=== PATIENT | female | born 1945 | race Caucasian/White ===

== ENCOUNTER 2016-10-29 12:08 | Day surgery (SDC) | payer MEDICARE, OTHER ==
[2016-10-26 11:20] LABS: HEMOGLOBIN 13.6 g/dL (12.0-16.0)
[2016-10-26 11:21] LABS: HEMATOCRIT 41.5 % (36.0-48.0)
[2016-10-26 11:35] LABS: CALCIUM, SERUM 9.2 MG/DL (8.5-10.4); CHLORIDE, SERUM 110 MMOL/L (96-112); CO2 (CARBON DIOXIDE) 28 MMOL/L (24-34); CREATININE 1.16 MG/DL (0.55-1.02); GFR AFRICAN AMERICAN 55 ML/MIN (>=60); GFR NON AFRICAN AMERICAN 48 ML/MIN (>=60); POTASSIUM, SERUM 4.8 MMOL/L (3.5-5.3)
[2016-10-26 11:36] LABS: BUN (BLOOD UREA NITROGEN) 15 MG/DL (6-23); GLUCOSE, SERUM 79 MG/DL (60-99); SODIUM, SERUM 144 MMOL/L (135-148)
[2016-10-26 12:26] LABS: ASCORBIC ACID (UR NOT ORDER) NEG (NEG); BILIRUBIN, URINE NEGATIVE (NEG); KETONE, URINE NEGATIVE (NEG); LEUKOCYTE ESTERASE(NOT OR LARGE (NEG); WBC (NOT ORDERED) (RFLEX) 3 (0-5)
--- NOTE | ~2016-10-29 | OP ---
Record Of Operation [facility] [address] [place]. [address] NAME: VILMA GODWIN : 47 STATUS : [facility]#: [id number] AGE: 71 ADM/REG DATE : 10/29/16 MR#: [id number] REPORT SERV DATE: 10/29/16 DICTATED BY: JASON NICOLE JR. DATE: 10/29/16 REPORT STATUS : Draft TRANSCRIBED BY: MODL DATE: 10/29/16 DATE OF PROCEDURE: 10/29/2016 SURGEON: Jason Nicole M.D. PREOPERATIVE DIAGNOSIS: Bladder tumor. POSTOPERATIVE DIAGNOSIS: Bladder tumor. PROCEDURE PERFORMED: Cystoscopy, bilateral retrograde pyelogram, and bladder biopsy. COMPLICATIONS: None. CONSULTATIONS: None. ANESTHESIA: General with laryngeal mask airway. SPECIMENS: Bladder biopsy x3. ESTIMATED BLOOD LOSS: None. INDICATION: Mrs. 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 She had a distal ureterectomy with partial cystectomy and ureteral reimplantation. 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 She comes today for biopsy of these areas. PROCEDURE IN DETAIL: After the patient was identified and proper informed consent was obtained, she was taken to the operating room. General anesthesia was performed without complication using a laryngeal mask airway. She was then prepped and draped in normal sterile fashion in the lithotomy position. Cystoscopic examination of the urethra and bladder were performed. The right ureteral orifice was in the normal position, normal size. The left ureteral orifice was at its reimplant location, posteriorly and laterally. There was a small erythematous area on the superior border of that ureteral orifice. 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 The rest of the bladder mucosa was found to be normal. Retrograde pyelograms were performed on the left side. She had a normal caliber and course to the ureter with normal collecting system without filling defect. 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 This was compared back to her previous IVP done several years ago, and she had a very similar appearance to her renal pelvis and calyces. I then performed cold cup biopsies of the three areas and cauterized these using a Bugbee electrode. The one area adjacent to the reimplanted orifice was labeled as such and the other two biopsies were labeled as left lateral wall biopsy. Bladder was drained. The patient was awakened in the operating room, transferred to the postanesthesia care in stable condition. I will see her back in one week for followup. Record Of Operation [address] [place]. [address] NAME: VILMA GODWIN : 47 STATUS : [facility] PAT#: [id number] AGE: 71 ADM/REG DATE : 10/29/16 MR#: [id number] REPORT SERV DATE: 10/29/16 DICTATED BY: JASON NICOLE JR. DATE: 10/29/16 REPORT STATUS : Draft TRANSCRIBED BY: KARINA DATE: 10/29/16 TONE/KARINA Jason Nicole Jr., M.D. / [id number] CC: Nadia Messina Jr., M.D.
[~2016-10-29 12:08] MED LIST: ASAB PO; CARDCD240 PO; DSS PO; PCET PO; PR12.5 PO; PYR200 PO; RANITIDINE300 MG PO; ZOCOR40 PO
== END 2016-10-29 17:00 | disposition home or self-care (01) ==
LOC: SDC 12:08
PROVIDERS: Urology
PROC: 0TBB8ZX Excision of Bladder, Via Natural or Artificial Opening Endoscopic, Diagnostic (ICD-10-PCS; principal; 2016-10-29 13:45)
PROC: BT141ZZ Fluoroscopy of Kidneys, Ureters and Bladder using Low Osmolar Contrast (ICD-10-PCS; 2016-10-29 13:45)
DX: C67.6 Malignant neoplasm of ureteric orifice (principal); N32.89 Other specified disorders of bladder; N30.20 Other chronic cystitis without hematuria; N28.82 Megaloureter; Q63.2 Ectopic kidney; I48.91 Unspecified atrial fibrillation; E78.00 Pure hypercholesterolemia, unspecified; E89.0 Postprocedural hypothyroidism; J44.9 Chronic obstructive pulmonary disease, unspecified; K21.9 Gastro-esophageal reflux disease without esophagitis; H91.90 Unspecified hearing loss, unspecified ear; F17.290 Nicotine dependence, other tobacco product, uncomplicated; Z79.82 Long term (current) use of aspirin; Z79.899 Other long term (current) drug therapy; Z98.41 Cataract extraction status, right eye; Z98.42 Cataract extraction status, left eye; Z96.1 Presence of intraocular lens; Z90.49 Acquired absence of other specified parts of digestive tract; Z90.3 Acquired absence of stomach [part of]; Z90.710 Acquired absence of both cervix and uterus; Z98.890 Other specified postprocedural states; Z90.722 Acquired absence of ovaries, bilateral
CPT/HCPCS: 74420; 80048; 81001; 85014; 85018; 87086; 88305; 93005; C1758; J2250; J3010; Q9967